=== PATIENT | male | born 1960 | race Caucasian/White ===

== ENCOUNTER 2017-04-02 16:39 | Emergency (ER) | payer SELFPAY ==
[2017-04-02 17:50] VITALS: BP 118/66; PULSE 78; RESP 16; TEMP 98.7; O2SAT 99
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
[2017-04-02] MEDS ORDERED: DIABETIC PILL (20:14)
== END 2017-04-02 18:00 ==
LOC: EDBD 16:39 → PHED 16:39
DX: S80.812A Abrasion, left lower leg, initial encounter (principal); S80.811A Abrasion, right lower leg, initial encounter; S40.812A Abrasion of left upper arm, initial encounter; R45.4 Irritability and anger; E11.9 Type 2 diabetes mellitus without complications; Z72.0 Tobacco use; X58.XXXA Exposure to other specified factors, initial encounter
CPT/HCPCS: 99283

== ENCOUNTER 2017-04-02 18:44 | Emergency (ER) | payer OTHER ==
[~2017-04-02] VITALS: Ht 170.2 cm; Wt 80.0 kg
[2017-04-02 20:08] VITALS: BP 173/86; PULSE 89; RESP 16; TEMP 98.3; O2SAT 98
[2017-04-02] MEDS ORDERED: DIABETIC PILL (20:14)
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
== END 2017-04-02 20:49 | disposition home or self-care (01) ==
LOC: NEDAMB 18:44
DX: F10.129 Alcohol abuse with intoxication, unspecified (principal); S40.812A Abrasion of left upper arm, initial encounter; S40.811A Abrasion of right upper arm, initial encounter; S80.812A Abrasion, left lower leg, initial encounter; S80.811A Abrasion, right lower leg, initial encounter; V18.4XXA Pedal cycle driver injured in noncollision transport accident in traffic accident, initial encounter; I10 Essential (primary) hypertension; E10.8 Type 1 diabetes mellitus with unspecified complications; Z72.0 Tobacco use
CPT/HCPCS: 99281